=== PATIENT | male | born 1995 | race Caucasian/White ===

== ENCOUNTER 2025-01-03 11:05 | Emergency (ER) | payer BC, MEDICAID ==
[2025-01-03] MEDS ORDERED: Sodium Chloride 0.9% 10 ML Syringe FLUSH PRN (11:18)
[2025-01-03 11:37] LABS: BASOPHILS PERCENT AUTO 0.3 % (0.0-1.0); EOSINOPHILS PERCENT AUTO 0.5 % (1.0-3.0); LYMPHOCYTES PERCENT AUTO 18.1 % (20.5-50.1); MONOCYTES PERCENT AUTO 4.8 % (2-8); NEUTROPHILS PERCENT AUTO 76.3 % (42.2-75.2); PLATELET COUNT,PLT 343 10^3/uL (150-450); RED BLOOD CELL COUNT 5.60 10^6/uL (4.6-6.2); WHITE BLOOD CELL COUNT,WBC 12.8 10^3/uL (5.0-10.0)
[2025-01-03] MEDS: Ondansetron 4 MG/2 ML SDV IVPUSH ONE (11:37)
[2025-01-03] MEDS: Ketorolac 30 MG/ML SDV IVPUSH ONE (11:48)
[2025-01-03 11:56] LABS: A/G RATIO 1.1; ALANINE AMINOTRANSFERASE,ALT 44 U/L (16-63); ASPARTATE AMNIOTRANSFERASE,AST 20 U/L (15-37); BILIRUBIN TOTAL 0.4 mg/dL (0.2-1.0); BLOOD UREA NITROGEN,BUN 8 mg/dL (7-18); CARBON DIOXIDE,CO2 29 mmol/L (21-32); CHLORIDE,CL 104 mmol/L (98-107); CREATININE 0.96 mg/dL (0.70-1.30); EST CRCL DRUG DOSING (CG) 113.54 mL/min; GLUCOSE RANDOM 129 mg/dL (70-99); POTASSIUM,K 4.1 mmol/L (3.5-5.1); PROTEIN TOTAL,TP 7.2 g/dL (6.4-8.2); SODIUM,NA 141 mmol/L (136-145)
[2025-01-03 11:59] LABS: LACTIC ACID 1.4 mmol/L (0.4-2.0)
[2025-01-03 12:00] LABS: ESTIMATED GFR 110 mL/min (>=60)
== END 2025-01-03 13:40 | disposition home or self-care (01) ==
LOC: DL.ED 11:05
DX: N13.2 Hydronephrosis with renal and ureteral calculous obstruction (principal)
CPT/HCPCS: 36415; 74176; 80053; 83605; 83690; 83735; 85025; 86140; 96374; 96375; 96376; 99284; J1885; J2405; J1171